=== PATIENT | female | born 1935 | race African-American/Black ===

== ENCOUNTER 2019-03-25 11:31 | Emergency (ER) | payer OTHER ==
--- OUTSIDE RECORDS SUMMARY | 2019-03-25 11:33 | XMS REPORT ---
:1935 Author Organization [facility] Address [address] [place] [address] Dr. On[address] [place] [id number] Care Team Providers Name Role Phone Unavailable Unavailable Unavailable Problems This patient has no known problems. Allergies, Adverse Reactions, Alerts This patient has no known allergies or adverse reactions. Medications This patient has no known medications.
--- OUTSIDE RECORDS SUMMARY | 2019-03-25 11:33 | XMS REPORT | Summary of Care ---
:12/16/1936 Author Organization [facility] - Health Address [address] [place] [address] Care Team Providers Name Role Phone Debi Janesn Keisha Primary Care Provider Encounter Details Date Type Department Care Team Description 09/02/2018 Orders Only [facility] Doctor Unassigned, No [address] [facility] [place] [address] [address] [place] [address] Allergies No Known Allergiesdocumented as of this encounter (statuses as of 09/02/2018) Medications Medication Sig Dispensed Refills Start Date End Date Status aspirin 325 mg tablet Take 325 mg by 0 Active mouth daily. tiotropium bromide Inhale 1 Dose 0 Active (SPIRIVA RESPIMAT) daily. 2.5 mcg/actuation Mist OMEGA-3 FATTY Take 1 Tab by 0 Active ACIDS/FISH OIL (OMEGA mouth 4 (four) 3 FISH OIL ORAL) times daily. PT TAKES 4 TIMES A DAY carvedilol (COREG) 2 TABS PO IN AM 1 90 Tab 5 04/11/2014 Active 3.125 mg TAB PO IN PM tabletIndications: Unspecified essential hypertension pravastatin Take 1 Tab by 90 Tab 1 04/11/2014 Active (PRAVACHOL) 40 mg mouth at bedtime. tabletIndications: 1 daily Other and unspecified hyperlipidemia enalapril (VASOTEC) Take 1 Tab by 180 Tab 1 04/11/2014 Active 20 mg mouth 2 (two) tabletIndications: times daily. Unspecified essential hypertension albuterol (PROAIR Inhale 2 Puffs 1 Inhaler 2 04/11/2014 Active HFA) 90 mcg/actuation every 6 (six) inhalerIndications: hours as needed COPD (chronic for Wheezing or obstructive pulmonary Shortness of disease) Breath. fluticasone (FLOVENT Inhale 2 Puffs 1 Inhaler 1 04/11/2014 Active HFA) 220 every 12 (twelve) mcg/actuation hours. inhalerIndications: COPD (chronic obstructive pulmonary disease) insulin lispro Inject SQ per 15 mL 3 05/15/2014 Active (HUMALOG KWIKPEN) 100 sliding scale unit/mL pen injectorIndications: Diabetes mellitus, type 2 levothyroxine Take 0.5 Tabs by 90 Tab 0 07/05/2014 Active (SYNTHROID) 112 mcg mouth every tablet morning. Insulin Glargine 60 units SQ in AM 30 mL 2 07/05/2014 Active (LANTUS SOLOSTAR) 100 And 42 units SQ in unit/mL (3 mL) PM InPnIndications: Type 2 diabetes mellitus with hyperglycemia LOVAZA, xlpaf-5-xmbc Take 4 capsules by 120 Cap 0 09/28/2014 Active ethyl esters, 1 gram mouth everyday. capsule NIFEdipine XL TAKE ONE TABLET BY 30 Tab 0 10/10/2014 Active (PROCARDIA XL) 90 mg MOUTH DAILY 24 hr tablet hydrOXYzine (ATARAX) Take 25 mg by 0 Active 25 mg tablet mouth every 6 (six) hours as needed for Itching. azelastine (ASTELIN) Use 1 [place] in 0 Active 137 mcg (0.1 %) nasal each nostril 2 spray (two) times daily. Use in each nostril as directed OXYGEN-AIR DELIVERY Inhale 2 L daily. 0 Active SYSTEMS Indications: MISCIndications: Oxygen at 2L/min Oxygen at 2L/min continuously continuously ibuprofen 600 mg Take 1 tablet by 20 tablet 0 05/02/2017 Active tablet mouth every 8 (eight) hours as needed for Pain (scale 1-3). docusate 100 mg Take 1 capsule by 30 capsule 0 08/13/2017 Active capsule mouth every 12 (twelve) hours. traMADOL 50 mg Take 1 tablet by 30 tablet 0 03/24/2018 Active tabletIndications: mouth every 6 Osteoarthritis of (six) hours as both knees, needed (pain). unspecified osteoarthritis type documented as of this encounter (statuses as of 09/02/2018) Active Problems Problem Noted Date S/P right mastectomy 08/12/2017 Malignant neoplasm of right female breast, unspecified estrogen receptor 07/27 status, unspecified site of breast Overview: Added automatically from request for surgery [id number] Small vessel disease 05/15/2014 COPD (chronic obstructive pulmonary disease) 04/11/2014 Routine medical exam 09/11/2008 Rash, skin 09/11/2008 Tobacco use disorder 09/11/2008 Essential hypertension 01/06/2006 Overview: ICD10 Diagnosis Term [employer] Diabetes mellitus, type 2 Hypothyroidism Overview: ICD10 Diagnosis Term [employer] HLD (hyperlipidemia) Overview: ICD10 Diagnosis Term [employer] Anxiety disorder documented as of this encounter (statuses as of 09/02/2018) Immunizations Name Administration Dates Next Due Pneumococcal 7 Conjugate, PCV7 01/06/2006 (Prevnar7) Tdap 09/11/2008 Tetanus/Diptheria 09/11/2008 (Deferred: Vaccine Unavailable - Will do in clinic today.) Zoster(Zostavax)(Shingles) 09/11/2008 documented as of this encounter Social History Tobacco Use Types Packs/Day Years Used Date Current Every Day Smoker Cigarettes 2 55 Smokeless Tobacco: Never Used Alcohol Use Drinks/Week oz/Week Comments No Sex Assigned at Date Recorded Not on file Job Start Date Occupation Industry Not on file Not on file Not on file Travel History Travel Start Travel End No recent travel history available. documented as of this encounter Last Filed Vital Signs Not on filedocumented in this encounter Plan of Treatment Date Type Specialty Care Team Description 09/02/2018 Orthopaedic Technologist Visit Clinical Medical Samantha Jeff MD [address] [place] [phone] Laboratory 1, [facility] Health Maintenance Due Date Last Done Comments EYE EXAM 12/16/1946 Medicare Wellness Visit 12/16/2001 PNEUMOCOCCAL VACCINES 65+ (1 of 2 12/16/2001 - PCV13) Zoster Recombinant Vaccine 11/06/2008 09/11/2008 (SHINGRIX) (2 of 3) FOOT EXAM 05/16/2015 05/15/2014, 05/15/2014, 04/11/2014, Additional history exists URINE MICROALBUMIN 01/23/2017 01/24/2016, 08/16/2006 DTaP,Tdap,and Td Vaccines (2 - Td) 09/11/2018 09/11/2008 INFLUENZA VACCINE 10/09/2018 HgA1C 10/28/2018 04/27/2018, 02/11/2018, 06/03/2017, Additional history exists CREATININE (SERUM) 04/28/2019 04/27/2018, 03/24/2018, 06/03/2017, Additional history exists LDL-C 04/28/2019 04/27/2018, 06/03/2017, 01/24/2016, Additional history exists documented as of this encounter Implants Implanted Type Area Staging Technician Device Shelf Model / Serial Identifier Expiration / Lot Date Lens LENS Left: Eye Agapito 11/08/2019 [id number] / Implanted: Qty: 1 on 05/08/2015 by Jose Angel Lucas MD at [facility] [id number] / [id number] Acry Sof Iq Lens LENS Right: Agapito 05/08/2020 [id number] / Implanted: Qty: 1 on 09/11/2015 by Jose Angel Lucas MD at [facility] Eye [id number] / [id number] documented as of this encounter Procedures Procedure Name Priority Date/Time Associated Diagnosis Comments ASSIGNMENT OF BENEFITS Routine 09/02/2018 9:12 AM CDT documented in this encounter Results Not on filedocumented in this encounter Insurance Payer Benefit Plan / Subscriber ID Effective Dates Phone Address Type Group MEDICARE MEDICARE PART xxxxxxxxxxx 2001-Mily [phone] [address] Medicare A & B 2 [id number] [place]EM[place] [address] [facility] MEDICAID OF xxxxxxxxx 2011-Selina [phone] [address] Medicaid [facility] 0 [id number] [place] [address] documented as of this encounter
--- OUTSIDE RECORDS SUMMARY | 2019-03-25 11:34 | XMS REPORT ---
:12/16/1936 Author Organization [facility] Care Team Providers Name Role Phone Debi Jansen Provider Role Unavailable Allergies, Adverse Reactions, Alerts Substance Reaction Event Type N.K.D.A. 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 Problem Hypothyroidism, unspecified type E03.9 Active Problem Hyperlipidemia, unspecified E78.5 Active hyperlipidemia type Problem Chronic obstructive pulmonary J44.9 Active disease, unspecified COPD type Problem Hypoxia R09.02 Active Problem Vertigo R42 Active Problem Type 2 diabetes mellitus with E11.65 Active hyperglycemia Problem Abnormal mammogram R92.8 Active Problem Essential hypertension I10 Active Problem History of breast cancer Z85.3 Active Problem History of total mastectomy of Z90.11 Active right breast Problem Depression screening Z13.31 Active Problem 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 Problem Diabetes mellitus with complication E11.8 Active Problem 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 Problem Hypertension, unspecified type I10 Active Problem Pain in right lower leg M79.661 Active Problem Pain of left lower leg M79.662 Active Problem Rash and nonspecific skin eruption R21 Active Problem Peripheral edema R60.9 Active Problem Arteriosclerosis of coronary artery I25.10 Active Problem Hyperlipemia E78.5 Active Problem Sinus problem J34.9 Active Problem Chronic obstructive pulmonary J44.9 Active disease Problem Hypertension I10 Active Problem Allergic rhinitis J30.9 Active Problem Hypothyroidism E03.9 Active Problem Anxiety F41.9 Active Medications Medication Code Code Instructions Start End Status Dosage System Date Date Triamcinolone ND 38466715194 0.1 % Oct 04, Active 1 application Acetonide Externally 2019 to affected Twice a day area BD Pen Needle ND 46533744613 32 gauge Active USE WITH Nancy U/F LANTUS SOLOSTAR AND HUMALOG PEN FIVE TIMES DAILY BD Pen Needle [facility] 53358811917 32G X 4 MM Active USE WITH Nancy U/F LANTUS SOLOSTAR AND HUMALOG PEN FIVE TIMES DAILY Enalapril [facility] 87998717402 20 mg Orally Active 1 tablet Maleate Twice daily Trazodone HCl [facility] 11881622742 50 MG Orally Active 1-2 tablets PRN at bedtime at bedtime as needed Lovaza [facility] 27816371518 1 GM Orally Active 2 capsules Twice a day Spiriva [facility] 67652273722 18 MCG Active 1 capsule HandiHaler Inhalation with Handihaler Once a day Furosemide ND 40022551296 20 MG Orally Oct 04, Active 1 tablet as Once a day 2018 needed for swelling Astepro [facility] 49533669530 0.15 % Nasally Active 1 spray in Twice a day each nostril Lantus SoloStar [facility] 53663787007 100 unit/mL Active as directed Subcutaneous 44 units in am and 40 units in pm Vistaril [facility] 24179493997 25 MG Orally Active 1 capsule as twice daily for needed anxiety/ sleep Azelastine HCl [facility] 09763828125 137 MCG/SPRAY Active 2 sprays in Nasally Once each nostril daily Humalog KwikPen [facility] 85596968509 100 UNIT/ML Active as directed; Subcutaneous As max daily directed per dosage 36 sliding scale units Procardia XL [facility] 52113870012 90 MG Orally Active 1 tablet Once a day Coreg [facility] 59720489315 6.25 MG Orally Active 1 tablet Twice daily Vitamin D-3 [facility] 35910010212 1000 UNIT Active 1 capsule Orally Once a day Anoro Ellipta [facility] 55015960465 62.5mcg/25 mcg Mar 09Jan Active 1 puff Inhaled Once 2017, daily 2018 ProAir HFA [facility] 93614454731 108 (90 Base) Active 2 puffs as MCG/ACT needed for Inhalation sob/wheezing every 4-6 hrs Pravastatin [facility] 60941143252 40 MG Orally Active 1 tablet in Sodium Once a day evening Lorazepam ND 69900603797 0.5 MG Orally Jan 19, Active 1 tablet as Once daily 2018 needed for anxiety Gabapentin ND 73907427954 100 mg Orally Active 1 capsule Once daily in evening for pain Breo Ellipta [facility] 23202907059 100-25 MCG/INH Active 1 puff Inhalation Once a day Synthroid [facility] 13765488839 112 MCG Orally Active 1 tablet on Once a day an empty stomach in the morning Results No Known Results Summary Purpose eClinicalWorks Submission
--- OUTSIDE RECORDS SUMMARY | 2019-03-25 11:34 | XMS REPORT | Summary of Care ---
:12/16/1936 Author Organization [facility] - Health Address [address] [place] [address] Care Team Providers Name Role Phone Debi Jansen Keisha Primary Care Provider Encounter Details Date Type Department Care Team Description 03/23/2019 Orders Only [facility] Doctor Unassigned, No 301 [facility] [place] [address] [address] [place] [address] Allergies No Known Allergiesdocumented as of this encounter (statuses as of 03/23/2019) Medications Medication Sig Dispensed Refills Start Date End Date Status aspirin 325 mg tablet Take 325 mg by 0 Active mouth daily. tiotropium bromide Inhale 1 Dose 0 Active (SPIRIVA RESPIMAT) 2.5 daily. mcg/actuation Mist OMEGA-3 FATTY Take 1 Tab by 0 Active ACIDS/FISH OIL (OMEGA 3 mouth 4 (four) FISH OIL ORAL) times daily. PT TAKES 4 TIMES A DAY carvedilol (COREG) 2 TABS PO IN AM 1 90 Tab 5 04/11/2014 Active 3.125 mg TAB PO IN PM tabletIndications: Unspecified essential hypertension pravastatin (PRAVACHOL) Take 1 Tab by 90 Tab 1 04/11/2014 Active 40 mg mouth at bedtime. tabletIndications: 1 daily Other and unspecified hyperlipidemia enalapril (VASOTEC) 20 Take 1 Tab by 180 Tab 1 04/11/2014 Active mg tabletIndications: mouth 2 (two) Unspecified essential times daily. hypertension albuterol (PROAIR HFA) Inhale 2 Puffs 1 Inhaler 2 04/11/2014 Active 90 mcg/actuation every 6 (six) inhalerIndications: hours as needed COPD (chronic for Wheezing or obstructive pulmonary Shortness of disease) Breath. fluticasone (FLOVENT Inhale 2 Puffs 1 Inhaler 1 04/11/2014 Active HFA) 220 mcg/actuation every 12 (twelve) inhalerIndications: hours. COPD (chronic obstructive pulmonary disease) insulin lispro (HUMALOG Inject SQ per 15 mL 3 05/15/2014 Active KWIKPEN) 100 unit/mL sliding scale pen injectorIndications: Diabetes mellitus, type 2 levothyroxine Take 0.5 Tabs by 90 Tab 0 07/05/2014 Active (SYNTHROID) 112 mcg mouth every tablet morning. Insulin Glargine 60 units SQ in AM 30 mL 2 07/05/2014 Active (LANTUS SOLOSTAR) 100 And 42 units SQ unit/mL (3 mL) in PM InPnIndications: Type 2 diabetes mellitus with hyperglycemia Additional information Patient taking differently: Subcutaneous BID, 60 units SQ in AM And 42 units SQ in PM, Indications: 44 units SQ in AM and 40 units SQ in PM, Reported on 05/07/2015 10:28 AM LOVAZA, haawq-0-ktoe ethyl Take 4 capsules by mouth 120 Cap 0 09/28/2014 Active esters, 1 gram capsule everyday. NIFEdipine XL (PROCARDIA TAKE ONE TABLET BY MOUTH 30 Tab 0 10/10/2014 Active XL) 90 mg 24 hr tablet DAILY azelastine (ASTELIN) 137 Use 1 [place] in each 0 Active mcg (0.1 %) nasal spray nostril 2 (two) times daily. Use in each nostril as directed OXYGEN-AIR DELIVERY Inhale 2 L daily. 0 Active SYSTEMS MISCIndications: Indications: Oxygen at Oxygen at 2L/min 2L/min continuously continuously docusate 100 mg capsule Take 1 capsule by mouth 30 capsule 0 08/13/2017 Active every 12 (twelve) hours. ipratropium-albuterol 0.5 Inhale 3 mL every 6 (six) 1 Box 0 11/08/2018 Active mg-3 mg(2.5 mg base)/3 mL hours as needed for nebulizer Wheezing. solutionIndications: COPD exacerbation Compressor, For Nebulizer Use as directed 1 Device 0 11/08/2018 Active (DEVILBISS PULMO-AIDE) DeviIndications: COPD exacerbation documented as of this encounter (statuses as of 03/23/2019) Active Problems Problem Noted Date S/P right mastectomy 08/12/2017 Malignant neoplasm of right female breast, unspecified estrogen receptor 07/27 status, unspecified site of breast Overview: Added automatically from request for surgery [id number] Small vessel disease 05/15/2014 COPD (chronic obstructive pulmonary disease) 04/11/2014 Routine medical exam 09/11/2008 Rash, skin 09/11/2008 Tobacco use disorder 09/11/2008 Essential hypertension 01/06/2006 Overview: ICD10 Diagnosis Term [employer] Utility Diabetes mellitus, type 2 Hypothyroidism Overview: ICD10 Diagnosis Term [employer] HLD (hyperlipidemia) Overview: ICD10 Diagnosis Term [employer] Anxiety disorder documented as of this encounter (statuses as of 03/23/2019) Immunizations Name Administration Dates Next Due Pneumococcal [...] filedocumented in this encounter Plan of Treatment Health Maintenance Due Date Last Done Comments EYE EXAM 12/16/1946 Medicare Wellness Visit 12/16/2001 Osteoporosis Screening 12/16/2001 PNEUMOCOCCAL VACCINES 65+ (1 of 2 12/16/2001 - PCV13) Zoster Recombinant Vaccine 11/06/2008 09/11/2008 (SHINGRIX) (2 of 3) FOOT EXAM 05/16/2015 05/15/2014, 05/15/2014, 04/11/2014, Additional history exists DTaP,Tdap,and Td Vaccines (2 - Td) 09/11/2018 09/11/2008 INFLUENZA VACCINE (#1) 2018 HgA1C 03/05/2019 09/02/2018, 04/27/2018, 02/11/2018, Additional history exists LDL-C 09/03/2019 09/02/2018, 04/27/2018, 06/03/2017, Additional history exists URINE MICROALBUMIN 09/03/2019 09/02/2018, 01/24/2016, 08/16/2006 CREATININE (SERUM) 11/09/2019 11/08/2018, 09/02/2018, 04/27/2018, Additional history exists documented as of this encounter Implants Implanted Type Area Radio Announcer Device Shelf Model / Serial Identifier Expiration / Lot Date Lens LENS Left: Eye Agapito 11/08/2019 [id number] / Implanted: Qty: 1 on 05/08/2015 by Jose Angel Lucas MD at [facility] [id number] / [id number] Acry Sof Iq Lens LENS Right: Agapito 05/08/2020 [id number] / Implanted: Qty: 1 on 09/11/2015 by Jose Angel Lucas MD at [facility] Eye [id number] / [id number] documented as of this encounter Procedures Procedure Name Priority Date/Time Associated Diagnosis Comments CONSENT/REFUSAL FOR Routine 03/23/2019 10:46 AM MECHANIC SENIOR DIAGNOSIS AND TREATMENT documented in this encounter Results Not on filedocumented in this encounter Insurance Payer Benefit Plan / Subscriber ID Effective Dates Phone Address Type Group MEDICARE MEDICARE PART xxxxxxxxxxx 2001-Presnikolas [phone] [address] Medicare A & B 2 [id number] [place]EL [place] [address] [facility] MEDICAID OF xxxxxxxxx 2011-Selina [phone] Medicaid [place] t 0 [id number] [place] [address] documented as of this encounter
--- OUTSIDE RECORDS SUMMARY | 2019-03-25 11:34 | XMS REPORT | Summary of Care ---
:12/16/1936 Author Organization [facility] - [facility] Address [address] [place] [address] Care Team Providers Name Role Phone Seferinodiana Debi Keisha Primary Care Provider Reason for Visit Reason Comments LAB WORK Auth/Cert Status Reason Specialty Diagnoses / Referred By Referred To Procedures Contact Contact Clinical Medical Diagnoses Essential (primary) hypertension [facility] Lab Laboratory Procedures MICROALBUMIN, RANDOM URINE CMP [address] [facility] [place] [address] Encounter Details Date Type Department Care Team Description 09/02/2018 [facility] [address] [place] [address] Essential hypertension, benign (Primary Dx); Phlebotomy 1, 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 capsule NIFEdipine XL TAKE ONE TABLET BY 30 Tab 0 10/10/2014 Active (PROCARDIA XL) 90 mg MOUTH DAILY 24 hr tablet hydrOXYzine (ATARAX) Take 25 mg by 0 Active 25 mg tablet mouth every 6 (six) hours as needed for Itching. azelastine (ASTELIN) Use 1 Olla in 0 Active 137 mcg (0.1 %) [...] Overview: Added automatically from request for surgery [id number] Small vessel disease 05/15/2014 COPD (chronic obstructive pulmonary disease) 04/11/2014 Routine medical exam 09/11/2008 Rash, skin 09/11/2008 Tobacco use disorder 09/11/2008 Essential hypertension 01/06/2006 Overview: ICD10 Diagnosis Term Insurance Risk Manager Utility Diabetes mellitus, type 2 Hypothyroidism Overview: ICD10 Diagnosis Term Insurance Risk Manager Utility HLD (hyperlipidemia) Overview: ICD10 Diagnosis Term Insurance Risk Manager Utility Anxiety disorder documented as of this [...] filedocumented in this encounter Plan of Treatment Name Type Priority Associated Diagnoses Date/Time MICROALBUMIN URINE LAB Routine Essential hypertension, 09/02/2018 9:25 AM benign CDT Uncontrolled type 2 diabetes mellitus with hyperglycemia Encounter for long-term (current) use of insulin 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, unspecified whether ely shoshone or transplanted heart Obstructive chronic bronchitis without exacerbation Hypoxemia Dependence on supplemental oxygen Hyperlipidemia, unspecified hyperlipidemia type GLYCOSYLATED HEMOGLOBIN LAB Routine Essential hypertension, 09/02/2018 9: 23 AM (A1C) benign CDT Uncontrolled type 2 diabetes mellitus with hyperglycemia Encounter for long-term (current) use of insulin 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, unspecified whether ely shoshone or transplanted heart Obstructive chronic bronchitis without exacerbation Hypoxemia Dependence on supplemental oxygen Hyperlipidemia, unspecified hyperlipidemia type LIPID PANEL LAB Routine Essential hypertension, 09/02/2018 9:23 AM ([id number])(TOTAL benign CDT CHOLESTEROL, Uncontrolled type 2 TRIGLYCERIDES, HDL) diabetes mellitus with hyperglycemia Encounter for long-term (current) use of insulin 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, unspecified whether ely shoshone or transplanted heart Obstructive chronic bronchitis without exacerbation Hypoxemia Dependence on supplemental oxygen Hyperlipidemia, unspecified hyperlipidemia type CBC WITH DIFF LAB Routine Essential hypertension, 09/02/2018 9:23 AM benign CDT Uncontrolled type 2 diabetes mellitus with hyperglycemia Encounter for long-term (current) use of insulin 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, unspecified whether ely shoshone or transplanted heart Obstructive chronic bronchitis without exacerbation Hypoxemia Dependence on supplemental oxygen Hyperlipidemia, unspecified hyperlipidemia type CBC WITH DIFFERENTIAL LAB Routine Essential hypertension, 09/02/2018 9:23 AM benign CDT Uncontrolled type 2 diabetes mellitus with hyperglycemia Encounter for long-term (current) use of insulin 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, unspecified whether ely shoshone or transplanted heart Obstructive chronic bronchitis without exacerbation Hypoxemia Dependence on supplemental oxygen Hyperlipidemia, unspecified hyperlipidemia type Health Maintenance Due Date Last Done Comments [...] of this encounter Implants Implanted Type Area Die Cleaner Device Shelf Model / Serial Identifier Expiration / Lot Date Lens LENS Left: Eye Agapito 11/08/2019 [id number] / Implanted: Qty: 1 on 05/08/2015 by Jose Angel Lucas MD at [facility] [id number] / [id number] Acry Sof Iq Lens LENS Right: Agapito 05/08/2020 [id number] / Implanted: Qty: 1 on 09/11/2015 by Jose Angel Lucas MD at [facility] Eye [id number] / [id number] documented as of this encounter Results Not on filedocumented in this encounter Visit Diagnoses Diagnosis Essential hypertension, benign - Primary Uncontrolled type 2 diabetes mellitus with hyperglycemia Encounter for long-term (current) use of insulin 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 Medicare A & B 2 [id number] [place] [id number] [facility] MEDICAID OF xxxxxxxxx 2011-Selina [phone] [address] Medicaid [facility] [id number] [place] [address] documented as of this encounter
--- OUTSIDE RECORDS SUMMARY | 2019-03-25 11:34 | XMS REPORT ---
:12/16/1936 Author Organization [employer] Care Team Providers Name Role Phone Debi Jansen Provider Role Unavailable Allergies No Known Allergies Problems Problem Type Condition Code Onset Dates Condition Status Problem halfway current use of insulin Z79.4 Active Problem Coronary artery disease involving I25.119 Active ramona coronary artery of ramona heart with angina pectoris Problem Hypothyroidism, unspecified [...] Medications Medication Code Code Instructions Start End Date Status Dosage System Date BusPIRone HCl [facility] [id number] 7.5 MG Orally Feb 14, Active 1 tablet Twice a day 2019 Results No Known Results Summary Purpose eClinicalWorks Submission
--- OUTSIDE RECORDS SUMMARY | 2019-03-25 11:35 | XMS REPORT | Summary of Care ---
:12/16/1936 Author Organization [facility] - [facility] Address [address] [place] [address] Care Team Providers Name Role Phone Seferinodiana Debi Keisha Primary Care Provider Reason for Visit Reason Comments Mass Auth/Cert Status Reason Specialty Diagnoses / Referred By Referred To Procedures Contact Contact [facility] [address] [place] [address] [place] [address] Encounter Details Date Type Department Care Team Description 03/23/2019 Emergency [facility] Kendall Erwin, Post-operative pain Department MD (Primary Dx) [address] [place] [address] [place] [id number] [id number] [place], [place] [id number] Allergies No Known Allergiesdocumented as of this [...] PM, Reported on 05/07/2015 10:28 AM LOVAZA, xpzrm-6-ymaa ethyl Take 4 capsules by mouth 120 Cap 0 09/28/2014 Active esters, 1 gram capsule everyday. NIFEdipine XL (PROCARDIA TAKE ONE TABLET BY MOUTH 30 Tab 0 10/10/2014 Active XL) 90 mg 24 hr tablet DAILY azelastine (ASTELIN) 137 Use 1 [place] in each 0 Active mcg (0.1 %) [...] 11/08/2018 Active (DEVILBISS PULMO-AIDE) DeviIndications: COPD exacerbation traMADol (ULTRAM) 50 mg Take 1 tablet by mouth 20 tablet 0 03/23/2019 Active tabletIndications: every 6 (six) hours as Post-operative pain needed for Pain (scale 7-10). documented as of this encounter (statuses as of 03/23/2019) Active Problems Problem Noted Date S/P right mastectomy 08/12/2017 Malignant neoplasm of right female breast, unspecified estrogen receptor 07/27 status, unspecified site of breast Overview: Added automatically from request for surgery [id number] Small vessel disease 05/15/2014 COPD (chronic obstructive pulmonary disease) 04/11/2014 Routine medical exam 09/11/2008 Rash, skin 09/11/2008 Tobacco use disorder 09/11/2008 Essential hypertension 01/06/2006 Overview: ICD10 Diagnosis Term Senior Database Engineer Utility Diabetes mellitus, type 2 Hypothyroidism Overview: ICD10 Diagnosis Term Senior Database Engineer Utility HLD (hyperlipidemia) Overview: ICD10 Diagnosis Term Senior Database Engineer Utility Anxiety disorder documented as of this [...] of this encounter Last Filed Vital Signs Vital Sign Reading Time Taken Comments Blood Pressure 137/63 03/23/2019 11:03 AM TANKAGE SUPERVISOR Pulse 71 03/23/2019 11:03 AM TANKAGE SUPERVISOR Temperature 36.9 C (98.5 F) 03/23/2019 11:03 AM TANKAGE SUPERVISOR Respiratory Rate 18 03/23/2019 11:03 AM TANKAGE SUPERVISOR Oxygen Saturation 98% 03/23/2019 11:03 AM TANKAGE SUPERVISOR Inhaled Oxygen Concentration - - Weight 93.4 kg (206 lb) 03/23/2019 11:03 AM TANKAGE SUPERVISOR Height 157.5 cm (5' 2") 03/23/2019 11:03 AM TANKAGE SUPERVISOR Body Mass Index 37.68 03/23/2019 11:03 AM TANKAGE SUPERVISOR documented in this encounter Discharge Instructions Kendall King MD - 03/23/2019 DIAGNOSIS Diagnoses that have been ruled out: None Diagnoses that are still under consideration: None Final diagnoses: Post-operative pain NO LIFE-THREATENING FINDINGS ON TODAY'S EXAM. PROCEDURES IN THE ER TODAY: No orders of the defined types were placed in this encounter. MEDICATIONS ADMINISTERED IN THE ER TODAY AND DISCHARGE MEDICATIONS: Orders Placed This Encounter Medications HYDROcodone-acetaminophen (NORCO 5) 5-325 mg tablet 1 tablet traMADol (ULTRAM) 50 mg tablet FOLLOW-UP RECOMMENDATIONS: RECOMMEND FOLLOW-UP WITH A PRIMARY CARE PROVIDER OR SPECIALIST IN 2-5 DAYS, ESPECIALLY IF NO IMPROVEMENT IN SYMPTOMS. MAY FOLLOW-UP WITH A PROVIDER OF YOUR CHOICE, SUCH : 1. A PHYSICIAN OF YOUR CHOICE 2. [facility], . LOCATIONS IN [facility] 3. [facility], [address] [place] [address]; [phone] OR, IF YOU WISH TO FOLLOW-UP WITHIN THE [facility], MAY TRY THESE OPTIONS (CLINIC APPOINTMENTS AVAILABLE ON [id number] BASIS): 1. SCHEDULE AN APPOINTMENT ONLINE AT [email or web address] 2. OR CALL THE [facility] AT OR 3. OR CALL YOUR [facility] PHYSICIAN'S OFFICE DIRECTLY IF YOU ARE ALREADY AN ESTABLISHED [facility] PATIENT. RETURN TO ER FOR WORSENING OF SYMPTOMS documented in this encounter Plan of Treatment Health [...] of this encounter Implants Implanted Type Area Aircraft Rigging And Controls Mechanic Device Shelf Model / Serial Identifier Expiration / Lot Date Lens LENS Left: Eye Agapito 11/08/2019 [id number] / Implanted: Qty: 1 on 05/08/2015 by Jose Angel Lucas MD at [facility] [id number] / [id number] Acry Sof Iq Lens LENS Right: Agapito 05/08/2020 [id number] / Implanted: Qty: 1 on 09/11/2015 by Jose Angel Lucas MD at [facility] Eye [id number] / [id number] documented as of this encounter Results Not on filedocumented in this encounter Visit Diagnoses Diagnosis Post-operative pain - Primary Other acute postoperative pain documented in this encounter Administered Medications Medication Order MAR Action Action Date Dose Rate Site HYDROcodone-acetaminophen Given 03/23/2019 12:08 PM TANKAGE SUPERVISOR 1 tablet (NORCO 5) 5-325 mg tablet 1 tablet 1 tablet, Oral, ONCE, 1 dose, [facility] 03/23/19 at 1245, JESSICA documented in this encounter Insurance Payer Benefit Plan / Subscriber ID Effective Dates Phone Address Type Group MEDICARE MEDICARE PART xxxxxxxxxxx 2001-Mily [phone] [address] Medicare A & B 2 [id number] [place] [id number] [facility] MEDICAID OF xxxxxxxxx 2011-Selina [phone] [address] Medicaid [place] t 0 [id number] [place] [address] documented as of this encounter
--- OUTSIDE RECORDS SUMMARY | 2019-03-25 11:35 | XMS REPORT | Summary of Care ---
:12/16/1936 Author Organization [facility] - [facility] Address [address] [place] [address] Care Team Providers Name Role Phone Debi Jansen Keisha Primary Care Provider Encounter Details Date Type Department Care Team Description 03/24/2019 Prep For Surgery [facility], [place], Malignant neoplasm [facility] [address] breast, unspecified [address] [place], [place] estrogen receptor [place] [address] status, unspecified [place], [place] [phone] site of breast [phone] (Primary Dx) [phone] Allergies No Known Allergiesdocumented as of this encounter (statuses as of 03/24/2019) Medications Medication Sig Dispensed Refills Start Date [...] PM, Reported on 05/07/2015 10:28 AM LOVAZA, wluco-3-oldf ethyl Take 4 capsules by mouth 120 Cap 0 09/28/2014 Active esters, 1 gram capsule everyday. NIFEdipine XL (PROCARDIA TAKE ONE TABLET BY MOUTH 30 Tab 0 10/10/2014 Active XL) 90 mg 24 hr tablet DAILY azelastine (ASTELIN) 137 Use 1 Leroy in each 0 Active mcg (0.1 %) [...] as of this encounter (statuses as of 03/24/2019) Active Problems Problem Noted Date S/P right mastectomy 08/12/2017 Malignant neoplasm of right female breast, unspecified estrogen receptor 07/27 status, unspecified site of breast Overview: Added automatically from request for surgery [id number] Small vessel disease 05/15/2014 COPD (chronic obstructive pulmonary disease) 04/11/2014 Routine medical exam 09/11/2008 Rash, skin 09/11/2008 Tobacco use disorder 09/11/2008 Essential hypertension 01/06/2006 Overview: ICD10 Diagnosis Term Warehouse Coordinator Utility Diabetes mellitus, type 2 Hypothyroidism Overview: ICD10 Diagnosis Term Warehouse Coordinator Utility HLD (hyperlipidemia) Overview: ICD10 Diagnosis Term Warehouse Coordinator Utility Anxiety disorder documented as of this encounter (statuses as of 03/24/2019) Immunizations Name Administration Dates Next Due Pneumococcal [...] of this encounter Implants Implanted Type Area Block Greaser Device Shelf Model / Serial Identifier Expiration / Lot Date Lens LENS Left: Eye Agapito 11/08/2019 [id number] / Implanted: Qty: 1 on 05/08/2015 by Jose Angel Lucas MD at [facility] [id number] / [id number] Acry Sof Iq Lens LENS Right: Agapito 05/08/2020 [id number] / Implanted: Qty: 1 on 09/11/2015 by Jose Angel Lucas MD at [facility] Eye [id number] / [id number] documented as of this encounter Results Not on filedocumented in this encounter Visit Diagnoses Diagnosis Malignant neoplasm of right female breast, unspecified estrogen receptor status , unspecified site of breast - Primary documented in this encounter Insurance Payer Benefit Plan / Subscriber ID Effective Dates Phone Address Type Group MEDICARE MEDICARE PART xxxxxxxxxxx 2001-Prese [phone] [address] Medicare A & B 2 [id number] [place] [address] [facility] MEDICAID OF xxxxxxxxx 2011-Presj[place] [phone] [address] Medicaid [facility] 0 [id number] [place] [address] documented as of this encounter
--- NOTE | 2019-03-25 12:48 | EDPHYS ---
Physician Documentation [facility] Name: Sharon Roche Age: 83 yrs Sex: Female : 1935 Arrival Date: 03/25/2019 Time: 11:34 Bed 13 Private MD: CLAUDIA Physician Aj Velazquez HPI: 03/25 12:41 This 83 yrs old Black Female presents to ER via Ambulatory with complaints of Facial pm1 Swelling. 12:41 Patient reports right facial swelling for 1 month. Had a needle biopsy on 03/17/2019 at pm1 MD Velazquez on 03/17/2019 and reports that since the procedure it has increased in size. She was discharged home with tramadol after the procedure and was told that she has multiple tumors in the swelling. No SOB, fever, difficulty swallowing or breathing, dental pain, sore throat, or difficulty swallowing. Historical: - Allergies: 12:03 No Known Allergies; ss - Home Meds: 12:03 None [Active]; ss - PMHx: 12:03 None; ss - PSHx: 12:03 Tubal ligation; ss - Immunization history:: Adult Immunizations up to date. - Coronavirus screen:: The patient has NOT traveled to [place] in the past 14 days. Proceed with normal triage process as indicated. - Social history:: Smoking status: Patient denies any tobacco usage or history of. - Ebola Screening: : Patient denies exposure to infectious person Patient denies travel to an Ebola-affected area in the 21 days before illness onset. ROS: 12:41 Constitutional: Negative for fever, chills, and weight loss, Eyes: Negative for injury, pm1 pain, redness, and discharge. 12:41 Neck: Negative for injury, pain, and swelling, Cardiovascular: Negative for chest pain, palpitations, and edema, Respiratory: Negative for shortness of breath, cough, wheezing, and pleuritic chest pain, Abdomen/GI: Negative for abdominal pain, nausea, vomiting, diarrhea, and constipation, Back: Negative for injury and pain, MS/Extremity: Negative for injury and deformity, Skin: Negative for injury, rash, and discoloration, Neuro: Negative for headache, weakness, numbness, tingling, and seizure. 12:41 ENT: Positive for facial swelling to right mandible under the right TMJ, Negative for ear pain, Gum pain sinus congestion, sinus pain, sore throat, dental pain. Exam: 12:41 Constitutional: This is a well developed, well nourished patient who is awake, alert, pm1 and in no acute distress. Head/Face: Normocephalic, atraumatic. 12:41 Neck: Trachea midline, no thyromegaly or masses palpated, and no cervical lymphadenopathy. Supple, full range of motion without nuchal rigidity, or vertebral point tenderness. No Meningismus. Chest/axilla: Normal chest wall appearance and motion. Nontender with no deformity. No lesions are appreciated. Cardiovascular: Regular rate and rhythm with a normal S1 and S2. No gallops, murmurs, or rubs. Normal PMI, no JVD. No pulse deficits. Respiratory: Lungs have equal breath sounds bilaterally, clear to auscultation and percussion. No rales, rhonchi or wheezes noted. No increased work of breathing, no retractions or nasal flaring. Abdomen/GI: Soft, non-tender, with normal bowel sounds. No distension or tympany. No guarding or rebound. No evidence of tenderness throughout. Back: No spinal tenderness. No costovertebral tenderness. Full range of motion. Skin: Warm, dry with normal turgor. Normal color with no rashes, no lesions, and no evidence of cellulitis. MS/ Extremity: Pulses equal, no cyanosis. Neurovascular intact. Full, normal range of motion. 12:41 ENT: External ear(s): are unremarkable, Ear canal(s): are normal, TM's: are normal, Nose: is normal, no acute changes, Mouth: Lips: normal, Oral mucosa: normal, Gums: normal with healthy appearance, Tongue: is normal, abscess, is not appreciated, Posterior pharynx: is normal, Dental exam: normal, no gum swelling, no trismus, 2 cm diameter circular soft mass that is 1.5 cm raised on the right mandible just below TMJ. No redness, warmth, discharge, fluctuance, or surrounding cellulitis. Tender to palpation. 12:41 Neuro: Orientation: is normal, Motor: is normal, moves all fours. Vital Signs: 12:03 BP 126 / 83; Pulse 68; Resp 22; Temp 98.1(TE); Pulse Ox 90% on R/A; Weight 92.53 kg; ss Height 5 ft. 6 in. (167.64 cm); Pain 0/10; 12:03 Body Mass Index 32.93 (92.53 kg, 167.64 cm) ss 12:03 Pt has a history of COPD and states that 90% on RA is her baseline ss MDM: 11:55 Patient medically screened. pm1 12:41 Data reviewed: vital signs. Data interpreted: Pulse oximetry: on room air is 90 %. pm1 Interpretation: use home 02. reports that is her baseline. Not having any shortness of breath. 12:43 Counseling: I had a detailed discussion with the patient and/or guardian regarding: the pm1 historical points, exam findings, and any diagnostic results supporting the discharge/admit diagnosis, the need for outpatient follow up, MD Velazquez for follow up and treatment of mass, to return to the emergency department if symptoms worsen or persist or if there are any questions or concerns that arise at home. Administered Medications: No medications were administered Disposition: 03/25/19 12:45 Discharged to Home. Impression: Localized swelling, mass and lump, head - Right jaw. - Condition is Stable. - Prescriptions for Clindamycin HCl 300 mg Oral Capsule - take 1 capsule by ORAL route every 6 hours for 10 days; 40 capsule. Tylenol- Codeine #3 300-30 mg Oral Tablet - take 2 tablets by ORAL route every 6 hours As needed; 20 tablet. - Medication Reconciliation Form, Thank You Letter, Antibiotic Education, Prescription Opioid Use form. - Follow up: Emergency Department; When: As needed; Reason: Worsening of condition. Follow up: Private Physician; When: 2 - 3 days; Reason: Recheck today's complaints, Continuance of care, Re-evaluation by your physician. - Problem is new. - Symptoms have improved. Addendum: 03/27/2019 07:57 Co-signature as Attending Physician, Aj Velazquez MD I agree with the assessment and c enciso plan of care. Signatures: María Lucas, RN RN aj1 Aj Velazquez MD MD cha Smirch, Shelby, RN RN ss Eitan Medel NP WALLPAPER CONSULTANT pm1 Corrections: (The following items were deleted from the chart) 03/25 12:59 12:45 03/25/2019 12:45 Discharged to Home. Impression: Localized swelling, mass and aj1 lump, head - Right jaw. Condition is Stable. Forms are Medication Reconciliation Form, Thank You Letter, Antibiotic Education, Prescription Opioid Use. Follow up: Emergency Department; When: As needed; Reason: Worsening of condition. Follow up: Private Physician; When: 2 - 3 days; Reason: Recheck today's complaints, Continuance of care, Re-evaluation by your physician. Problem is new. Symptoms have improved. pm1
--- NOTE | 2019-03-25 12:48 | ER ---
Nurse's Notes [facility] Name: Sharon Roche Age: 83 yrs Sex: Female : 1935 Arrival Date: 03/25/2019 Time: 11:34 Bed 13 Private MD: Diagnosis: Localized swelling, mass and lump, head-Right jaw Presentation: 03/25 12:00 Presenting complaint: Patient states: swelling to R side of face/ mandible area that ss began over a month ago. Pt had a biopsy of the area on the 7th of this month and states that the swelling just got much worse after that. Denies SOB/ fever. Transition of care: patient was not received from another setting of care. Acute neurological deficit: none identified. Onset of symptoms was February 2019. Risk Assessment: Do you want to hurt yourself or someone else? Patient reports no desire to harm self or others. Initial Sepsis Screen: Does the patient meet any 2 criteria? No. Patient's initial sepsis screen is negative. Does the patient have a suspected source of infection? No. Patient's initial sepsis screen is negative. Care prior to arrival: None. 12:00 Method Of Arrival: Ambulatory ss 12:00 Acuity: COLEEN 3 ss Historical: - Allergies: 12:03 No Known Allergies; ss - Home Meds: 12:03 None [Active]; ss - PMHx: 12:03 None; ss - PSHx: 12:03 Tubal ligation; ss - Immunization history:: Adult Immunizations up to date. - Coronavirus screen:: The patient has NOT traveled to [place] in the past 14 days. Proceed with normal triage process as indicated. - Social history:: Smoking status: Patient denies any tobacco usage or history of. - Ebola Screening: : Patient denies exposure to infectious person Patient denies travel to an Ebola-affected area in the 21 days before illness onset. Screenin:23 Abuse screen: Denies threats or abuse. Denies injuries from another. Nutritional aj1 screening: No deficits noted. Tuberculosis screening: No symptoms or risk factors identified. 12:57 Fall Risk None identified. aj1 Assessment: 12:23 General: Appears in no apparent distress. comfortable, Behavior is calm, cooperative, aj1 appropriate for age. Pain: Denies pain. Neuro: Level of Consciousness is awake, alert, obeys commands, Oriented to person, place, time, situation. Cardiovascular: Patient's skin is warm and dry. Respiratory: Airway is patent Respiratory effort is even, unlabored, Respiratory pattern is regular, symmetrical, Denies shortness of breath. GI: No signs and/or symptoms were reported involving the gastrointestinal system. : No signs and/or symptoms were reported regarding the genitourinary system. EENT: No signs and/or symptoms were reported regarding the EENT system. Derm: No signs and/or symptoms reported regarding the dermatologic system. Skin is pink, warm \T\ dry. normal. Musculoskeletal: Swelling present in right cheek. Vital Signs: 12:03 BP 126 / 83; Pulse 68; Resp 22; Temp 98.1(TE); Pulse Ox 90% on R/A; Weight 92.53 kg; ss Height 5 ft. 6 in. (167.64 cm); Pain 0/10; 12:03 Body Mass Index 32.93 (92.53 kg, 167.64 cm) 12:03 Pt has a history of COPD and states that 90% on RA is her baseline ED Course: 11:34 Patient arrived in ED. fj1 11:55 Eitan Medel NP is PHCP. pm1 11:55 Aj Velazquez MD is Attending Physician. pm1 12:02 Triage completed. ss 12:03 Arm band placed on right wrist. 12:11 María Lucas, RN is Primary Nurse. aj1 12:23 Patient has correct armband on for positive identification. Bed in low position. Call aj1 light in reach. Side rails up X 1. 12:23 No provider procedures requiring assistance completed. aj1 12:57 Patient did not have IV access during this emergency room visit. aj1 Administered Medications: No medications were administered Outcome: 12:45 Discharge ordered by . pm1 12:59 Discharged to home ambulatory. aj1 12:59 Condition: good 12:59 Discharge instructions given to patient, Instructed on discharge instructions, follow up and referral plans. no drinking with medication, no driving heavy equipment, medication usage, Demonstrated understanding of instructions, follow-up care, medications, Prescriptions given X 2. 12:59 Patient left the ED. aj1 Signatures: María Lucas RN RN aj1 Teagan Clarke RN RN Eitan Medel NP SUPPLY TECHNICIAN pm1 John Liang fj1 Corrections: (The following items were deleted from the chart) 12:06 12:00 Acuity: COLEEN 5 ss ss 12:58 12:23 Musculoskeletal: Swelling present in right cheek aj1 aj1
[2019-03-25 13:53] VITALS: BP 126/83; TEMP 98.1; O2SAT 90
== END 2019-03-25 12:59 | disposition home or self-care (01) ==
LOC: ER 11:31
DX: R22.0 Localized swelling, mass and lump, head (principal)
CPT/HCPCS: 99282